=== PATIENT | female | born 1970 | race African-American/Black ===

== ENCOUNTER 2017-12-17 15:39 | Emergency (ER) | payer BC, MEDICAID ==
[~2017-12-17] VITALS: Ht 167.6 cm; Wt 85.0 kg
[2017-12-17 15:42] VITALS: BP 120/75
[2017-12-17] MEDS ORDERED: KETOROLAC 60MG/2ML VIAL IM ONE (17:45)
[2017-12-17] MEDS ORDERED: BACITRACIN ZINC OINT UDPKT TOP ONE ×2 (17:45→18:45)
[2017-12-17] MEDS ORDERED: TETANUS, DIPHTHERIA, PERTUSSIS VAC/PF 0.5ML (>7YR OLD) IM ONE (17:45)
[2017-12-17] MEDS ORDERED: LIDOCAINE HCL 1% 20ML VIAL (Pyxis) INJ MC ONE (18:45)
[2017-12-17] MEDS ORDERED: LIDOCAINE HCL/PF 1% 10 MG/ML 5ML VIAL ONE (19:08)
[2017-12-17] MEDS ORDERED: ACETAMINOPHEN 500MG TABLET PO ONE (20:00)
== END 2017-12-17 20:30 | disposition home or self-care (01) ==
LOC: ER 15:39 → EDSEX 15:39 → ER 20:30
DX: S91.311A Laceration without foreign body, right foot, initial encounter (principal); M79.672 Pain in left foot; V03.00XA Pedestrian on foot injured in collision with car, pick-up truck or van in nontraffic accident, initial encounter; Y93.89 Activity, other specified; Y92.512 Supermarket, store or market as the place of occurrence of the external cause
CPT/HCPCS: 12001; 73630; 90715; 96372; 99284; J1885; J3490; X7700; Z7610